=== PATIENT | male | born 1950 | race Caucasian/White ===

== ENCOUNTER 2017-05-29 10:22 | Inpatient (IN) ==
[2017-05-29] MEDS ORDERED: CeFAZolin Syr 2,000MG/20 ML 2,000 MG/20 ML SYRINGE IVPB ONE (10:38)
[2017-05-29] MEDS ORDERED: Albuterol 2.5 MG/3 ML NEBULIZER IH ONE (10:38)
[2017-05-29] MEDS ORDERED: *HR* Propofol 200 MG/20 ML VIAL IVP ONE (10:42)
[2017-05-29] MEDS ORDERED: *HR* Midazolam HCl 2 MG/2 ML VIAL ONE (10:43)
[2017-05-29] MEDS ORDERED: *HR* FentaNYL (PF) 100 MCG/2 ML VIAL ONE (10:43)
[2017-05-29] MEDS ORDERED: Ringers Solution, Lactated 1,000 ML IVC SCH ×2 (10:45→17:52)
[2017-05-29] MEDS ORDERED: Dexamethasone 4 MG/ML VIAL ONE (10:47)
[2017-05-29] MEDS ORDERED: Lidocaine -MPF 2% 2 ML VIAL ONE (10:47)
[2017-05-29] MEDS ORDERED: Ondansetron 4 MG/2 ML VIAL ONE (10:47)
[2017-05-29] MEDS ORDERED: *HR* Rocuronium Bromide 50 MG/5 ML VIAL ONE (10:47)
--- NOTE | 2017-05-29 11:30 | Anesthesia Evaluation PreOp ---
Date of Encounter: 05/29/17 Time of Encounter: 11:28 - Past History Planned Operation: Robotic Assisted Radical Prostatectomy Cardiac History: Denies any Significant Hx (MRI fusion Bx Prostate Cardiac History: HTN, Hyperlipidemia Pulmonary History: Denies Any Significant HX AD OPERATIONS SPECIALIST History: Denies Any Significant HX Other Medical History: Diabetes Type II (prediabetes) Anesthesia History: No Prior Anesthetic Complications, Past Anesthesia (Tonsils) Alcohol Use: none), HTN, Hyperlipidemia Pulmonary History: Denies Any Significant HX, Smoker (pipe) AD OPERATIONS SPECIALIST History: Denies Any Significant HX Other Medical History: Diabetes Type II, Other (prostate CA) Anesthesia History: No Prior Anesthetic Complications, Past Anesthesia (MRI fusion Bx of Prostate, Tonsillectomy) Alcohol Use: none Drug use: none Medications and Allergies Chlorhexidine Rinse 15 ml PO BID 05/29/17 [History] Lisinopril/Hydrochlorothiazide [Zestoretic 20-12.5 mg Tablet] 1 tab PO DAILY 09/13 [History] Simvastatin [Zocor] 20 mg PO HS 05/29/17 [History] 3 Allergy/AdvReac Type Severity Reaction Status Date / Time No Known Allergies Allergy Verified 05/29/17 10:52 - Meds/Allergy Pre-op Review Medications Reviewed: Yes Allergies Reviewed: Yes Beta Blockers on Current Med List: No Anesthesia Results - Labs Laboratory Tests 05/20/17 05/20/17 10:25 10:25 WBC 5.4 Hgb 14.7 Hct 44.2 Plt Count 197 Sodium 138 Potassium 4.2 Chloride 108 Carbon Dioxide 23 BUN 17 Creatinine 0.89 - Imaging EKG: image reviewed (SINUS RHYTHM MODERATE INTRAVENTRICULAR CONDUCTION DELAY) Anesthesia Exam O2 Sat Height 1.8 m Height 1.8 m Weight 91.626 kg Weight 91.626 kg O2 Sat by Pulse Oximetry 93 Vital Signs Temp Pulse Resp BP Pulse Ox 98.2 F 83 16 155/96 93 05/29/17 10:47 05/29/17 10:47 05/29/17 10:47 05/29/17 10:47 05/29/17 10:47 Height: 5'11'' Weight: 202# NPO (# of Hours): > 8 hrs Pain Scale: 0 Pain Scale Used: Numeric (1 - 10) - HEENT Pupil (Motor): Pupils equal, EOMI Mallampati: II Teeth: Normal Oral Opening: Greater than 3 - AD OPERATIONS SPECIALIST LOC: Oriented AD OPERATIONS SPECIALIST Motor: Normal RUE, Normal LUE, Normal RLE, Normal LLE, Normal Face AD OPERATIONS SPECIALIST Sensory: Normal: RUE, LUE, RLE, LLE, Face - Cardiac Rhythm: Regular Murmur: None JVD: No Carotid Bruit: No - Pulmonary Breath Sounds: bilateral Clear Respiratory Effort: Symmetrical Anesthesia Assess/Plan ASA Score: 2 Modified Arthur Scale for Level of Consciousness: Cooperative, oriented, and tranquil Anesthetic Plan: General Autologous Blood: Yes Monitoring Plan: Standard Monitors Recovery Plan: PACU
--- NOTE | 2017-05-29 11:36 | History & Physical Report ---
Date of Encounter: 05/29/17 Time of Encounter: 11:35 24 Hour HP Update - Instructions Instructions: If the History and Physical is less than 30 days old and was completed prior to A.M. admission and or procedure and has NOT been updated on calendar day of procedure please complete this update prior to performing procedure. - Update Patient reports changes in Medical Condition: No Changes in examination, assessment, or condition: No Changes in Medication: No Preop tests/diagnostics Reviewed: Yes Surgery Remains Indicated: Yes Consent for Planned Operative Procedure(s) Verified: Yes - Pre-Operative Checklist Preoperative Checklist Indicated: Yes Prophylactic Antibiotic Ordered: Yes Home Medications Include Beta Mehdi: No Is VTE Prophylaxis Indicated?: Yes
[2017-05-29] MEDS ORDERED: *HR* HYDROmorphone 2 MG/ML SYRINGE ONE (13:35)
[2017-05-29] MEDS ORDERED: *HR* Labetalol 20 MG/4 ML SYRINGE IVP PRN (13:53)
[2017-05-29] MEDS ORDERED: *HR* Promethazine 25 MG/ML VIAL IVP PRN (13:53)
[2017-05-29] MEDS ORDERED: Ondansetron 4 MG/2 ML VIAL IVP ONE (13:53)
[2017-05-29] MEDS ORDERED: *HR* HYDROmorphone (PF) 1 MG/ML SYRINGE IVP PRN (13:53)
[2017-05-29] MEDS ORDERED: *HR* Magnesium Sulfate 1 GM/2 ML VIAL ONE (14:02)
[2017-05-29] MEDS ORDERED: Acetaminophen IV 1,000 MG/100 ML INFUS..BTL ONE (14:30)
[2017-05-29] MEDS ORDERED: Ketorolac 30 MG/ML VIAL ONE (14:34)
--- NOTE | 2017-05-29 16:56 | Operative Note ---
Date of procedure: 05/29/17 Pre-op diagnosis: Prostate cancer Post-op diagnosis: same Procedure: Robotic-assisted radical prostatectomy Implants: 19 Cymro Kurt drain. 20 Cymro Bee catheter. Complications: None. Anesthesia: AKSHAT Surgeon: Javon Olivera Transportation Specialist: Jesus Valero Estimated blood loss (cc): 300 Specimen: Prostate Condition: stable Disposition: PACU Procedure in Detail: INDICATIONS FOR PROCEDURE: Mr. Calderon is a 66 year-old male with history of elevated PSA. He was found on prostate needle biopsy to have Ailyn 3+3 prostate cancer along the left side. He is now presenting for robotic assisted prostatectomy. He was informed of the risks of the procedure including but not limited to bleeding, infection, injury to other structures, need for further procedures, lymphocele, urinary incontinence, urine leak, erectile dysfunction, bladder neck contracture, rectal injury, and the risk of anesthesia. He is willing to proceed. PROCEDURE: After informed consent was obtained, the patient was taken to the operating room, placed supine on the table. He was given IV antibiotics for antibiotic coverage. He had RYAN's and SCD's placed on the lower extremities for DVT prophylaxis. Induction of general anesthesia was performed. The arms were tucked and he was placed in lithotomy position. He was secured to the OR table with padding. An 16 Cymro Bee catheter was placed. A 10mm incision was made just infraumbilically. The Veress needle was introduced. The water drop test passed. Pneumoperitoneum was initiated with low pressures initially. The abomen was insufflated. I then placed a 12mm camera port through this incision using the visual obturator and the 8 mm robotic camera.. Once the trocar was in place, the camera for the robot was placed in the field and remaining trocars were placed. Robotic ports were placed x 2 on the right side. We placed another robotic port to the left of the umbilicus. We also placed a 12mm port in the left lower quadrant. Once all trocars were in place, the robot was docked to the patient and the monopolar scissors were placed on the right robotic arm. The bipolar [place] was in the left robotic arm and the Prograsp in the 4th arm. The left colon was adhered to the pelvic sidewall and the adhesions were dissected down sharply. This provided some mobility and allowed us to mobilize the bowel out of the pelvis. The medial umbilical ligaments were cauterized and the bladder was taken down off the anterior abdominal wall using electrocautery. The bladder was then grasped with a 4th arm and retracted cephalad. We then swept the periprostatic fat off the prostate as well as the pelvic sidewall. We then incised the endopelvic fascia on both sides and carried the incision up to the prostatic apex, sweeping the levator fibers off of the prostate. The puboprostatic ligaments were carefully incised. We then turned our attention to the bladder neck which was incised with the monopolar cautery until the catheter was visualized at the bladder neck. The balloon of the catheter was deflated. It was brought out of the bladder and retracted anteriorly using the fourth arm. He had some lateral lobe hyperplasia. These were brought with the prostate. The plane between the prostate and the posterior bladder neck was developed. The posterior bladder neck was then opened using the cautery until the space between the prostate and the bladder neck was visualized. The posterior aspect of the prostate was dissected down carefully using electrocautery. The vas deferens and seminal vesicals were encountered. The vas deferens were cauterize and divided. We pulled the seminal vesicles up into the field to help retract the prostate in cephalad direction. Denonvillier's fascia was dissected off the prostate posteriorly. We then began releasing the lateral prostatic fascia, first on the left side. The neurovascular bundles was dissected off with minimal use of cautery to do a good nerve sparing approach. After the left neurovascular bundle was released, I carefully divided the pedicles using multiple Hem-o-nik clips to clip the larger prostatic pedicle. An identical procedure was performed on the rightt side to release the neurovascular bundles. Once both neurovascular bundles were released, the posterior attachments were released sharply between the prostate and the rectum. We then used the 4th arm to place the prostate on stretch in cephalad direction. We then transected the dorsal venous complex. There is a fair amount of hemorrhage at this point. The dorsal venous complex was rather broad. It was then oversewed with 0 Vicryl suture in [id number] fashions. Hemostasis was then achieved. Then with cold scissors I cut across the urethra until the catheter was visualized. The catheter was removed and the posterior urethra was transected. The prostate was then placed in an Endo Catch bag. The pedicles were identified and cautery was utilized to minimize any bleeding to control it. The urethral vesicle anastomosis was then performed with a 3-0 V-Nik suture in running fashion starting at 6 o'clock position. With two sutures tied together we then ran the right side up about [facility]. The left side was then run around until the bladder was reanastamosed to the urethra. The final 20 Cymro catheter was placed into the bladder and balloon filled with 15 mL of sterile water. The bladder was irrigated. No leak was identified. A 19 Cymro Kurt drain was placed through the trocar down into the pelvis. The trocar was removed and drain sewn in place with a suture. The robot was then undocked from the patient. I was able to place my finger from the camera wound across the abdomen to grasp the Endocatch bag and bring the suture to the umbilical wound. After extending the incision slightly with the electrocautery the EndoCatch bag was then removed from the camera port. The abdominal fascia was then closed in running fashion with 0 Vicryl suture. All incisions were instilled with 0.25 % Marcaine. The remaining trocars were removed under direct vision and all incisions were then closed with 4-0 Monocryl in subcuticular fashion. The patient was then awakened from general anesthesia and brought to the recovery room in good condition. All sponge, needle, and instrument counts were correct.
--- NOTE | 2017-05-29 17:49 | Anesthesia Evaluation Post Op ---
Date of Encounter: 05/29/17 Time of Encounter: 17:49 - Vital Signs Vital Signs: Selected Entries 05/29/17 17:40 Temperature 99.5 F Pulse Rate 89 Respiratory Rate 16 Blood Pressure 157/91 O2 Sat by Pulse Oximetry 100 Oxygen Flow Rate (LPM) 2 - Lungs Lungs: Clear Ascult./Percussion - Airway Airway: Non-obstructed - Cardiovascular Regular Rate - Mental Status Mental Status: Alert & Oriented, Answers Appropriately - Pain Pain Scale: 0 Pain Scale used: Numeric (1 - 10) - Nausea Vomiting Nausea Vomiting: Not Present - Hydration Hydration: Ice chips, Bee catheter - Discharge PostOp Status: Transfer Patient to floor
[2017-05-29] MEDS ORDERED: Naloxone 0.4 MG/ML INJ IVP PRN (17:52)
[2017-05-29] MEDS ORDERED: Acetaminophen 325 MG TABLET PO PRN (17:52)
[2017-05-29] MEDS ORDERED: Ondansetron 4 MG/2 ML VIAL IVP PRN (17:52)
[2017-05-29] MEDS: *HR* Heparin 5,000 UNIT/ML VIAL SQ SCH (18:34)
[2017-05-29] MEDS: 0.9 % Sodium Chloride 1,000 ML IVC SCH (18:34)
[2017-05-30] MEDS: *HR* HYDROmorphone (PF) 1 MG/ML SYRINGE IVP PRN ×2 (03:10→08:19)
[2017-05-30] MEDS: 0.9 % Sodium Chloride 1,000 ML IVC SCH (03:17)
[2017-05-30 05:19] LABS: Hematocrit 37.5 % (37.5-50.1); Hemoglobin 12.6 g/dL (12.9-16.9); Mean Corpuscular HGB Conc 33.6 g/dL (31.6-35.5); Mean Corpuscular Hemoglobin 29.9 pg (28.0-33.3); Mean Corpuscular Volume 88.9 fL (83.0-100.0); Platelet Count 280 K/mcL (140-400); Red Blood Count 4.22 M/mcL (4.19-5.50); Red Cell Distribution Width 13.7 % (11.5-14.5)
[2017-05-30 05:33] LABS: BUN/Creatinine Ratio 14 (6-26); Blood Urea Nitrogen 12 mg/dL (8-26); Calcium 8.3 mg/dL (8.6-10.8); Carbon Dioxide 25 mEq/L (19-29); Chloride 105 mEq/L (98-109); Glucose 123 mg/dL (70-99); Osmolality,Calculated 285 (280-300); Potassium 3.8 mEq/L (3.5-4.5); Sodium 137 mEq/L (136-145); eGFR For African Americans > 60 (> 60); eGFR For Non-African Americans > 60 (> 60)
[2017-05-30] MEDS: *HR* Heparin 5,000 UNIT/ML VIAL SQ SCH ×2 (05:33→18:36)
--- NOTE | 2017-05-30 07:38 | Urology Progress Note ---
Date of Encounter: 05/30/17 Time of Encounter: 07:36 - Assessment and Plan (1) Prostate cancer Current Visit: Yes Status: Acute Assessment and plan: Postop day 1 status post robotic-assisted radical prostatectomy. 1. Increase diet to clear liquids today. 2. Will consult PT for ambulation. 3. Continue ANGELICA for now. 4. Continue Bee catheter. 5. Consider possible discharge home later today if tolerating a general diet. Progress Note Narrative: Postoperative day #1 status post robotic-assisted radical prostatectomy. He is doing well. His pain is adequately controlled. He mentioned some mild headache. He is breathing well. He denies chest pain or shortness of breath. He denies any nausea. Objective Initial Vital Signs Temp Pulse Resp BP Pulse Ox 98.2 F 83 16 155/96 93 05/29/17 10:47 05/29/17 10:47 05/29/17 10:47 05/29/17 10:47 05/29/17 10:47 - General physical appearance Present: well developed, well nourished, no distress - Respiratory Present: normal respiratory effort - Abdomen Present: soft (Appropriately tender. Incisions are clean dry and intact. ANGELICA drain is serosanguineous.) - Genitourinary Present: normal penis with no external lesions Urine Appearance: Present: Clear - Labs 05/30/17 05:02 05/30/17 05:02 Diabetes panel 05/30/17 Range/Units 05:02 Sodium 137 (136-145) mEq/L Potassium 3.8 (3.5-4.5) mEq/L Chloride 105 (98-109) mEq/L Carbon Dioxide 25 (19-29) mEq/L BUN 12 (8-26) mg/dL Creatinine 0.84 (0.72-1.25) mg/dL Glucose 123 H (70-99) mg/dL Calcium 8.3 L (8.6-10.8) mg/dL Calcium panel 05/30/17 Range/Units 05:02 Calcium 8.3 L (8.6-10.8) mg/dL Pituitary panel 05/30/17 Range/Units 05:02 Sodium 137 (136-145) mEq/L Potassium 3.8 (3.5-4.5) mEq/L Chloride 105 (98-109) mEq/L Carbon Dioxide 25 (19-29) mEq/L BUN 12 (8-26) mg/dL Creatinine 0.84 (0.72-1.25) mg/dL Glucose 123 H (70-99) mg/dL Calcium 8.3 L (8.6-10.8) mg/dL Adrenal panel 05/30/17 Range/Units 05:02 Sodium 137 (136-145) mEq/L Potassium 3.8 (3.5-4.5) mEq/L Chloride 105 (98-109) mEq/L Carbon Dioxide 25 (19-29) mEq/L BUN 12 (8-26) mg/dL Creatinine 0.84 (0.72-1.25) mg/dL Glucose 123 H (70-99) mg/dL Calcium 8.3 L (8.6-10.8) mg/dL - VTE Documentation of Mechanical Device: Intermittent pneumatic compression device Consult Discharge Plan - Plan Referrals: Francois Wisdom MD [Primary Care Provider] - Javon Olivera MD [Partnered Physician] -
[2017-05-30] MEDS ORDERED: D5% in 0.45% NACL w KCl 20 MEQ/1,000 ML MLS IVC SCH (07:45)
[2017-05-30] MEDS ORDERED: Lisinopril-HCTZ 20-12.5mg TABLET PO SCH (09:00)
[2017-05-30] MEDS: *HR* OxyCODONE Immed Rel 5 MG TABLET PO PRN ×2 (11:40→18:32)
[2017-05-30 15:27] VITALS: BP 147/88
--- NOTE | 2017-05-30 17:14 | Discharge Summary ---
Date of Encounter: 05/30/17 Time of Encounter: 17:12 - Discharge Diagnosis (1) Prostate cancer Priority: Primary Status: Acute - Discharge Medications Prescriptions: Docusate [Colace] 100 mg PO BID #60 capsule Oxycodone HCl/Acetaminophen [Percocet 5-325 mg Tablet] 1 each PO Q6H PRN #25 tablet PRN Reason: Pain Home Medications: Chlorhexidine Rinse 15 ml PO BID 05/29/17 [History] Lisinopril/Hydrochlorothiazide [Zestoretic 20-12.5 mg Tablet] 1 tab PO DAILY 09/13 [History] Simvastatin [Zocor] 20 mg PO HS 05/29/17 [History] Docusate [Colace] 100 mg PO BID #60 capsule 05/30/17 [Rx] Oxycodone HCl/Acetaminophen [Percocet 5-325 mg Tablet] 1 each PO Q6H PRN #25 tablet 05/30/17 [Rx] Allergies/Adverse Reactions: 3 Allergy/AdvReac Type Severity Reaction Status Date / Time No Known Allergies Allergy Verified 05/29/17 10:52 Labs on day of discharge: Labs from last 24 hours 05/30/17 05/30/17 05/30/17 16:31 11:01 07:58 WBC RBC Hgb Hct MCV MCH MCHC RDW Plt Count MPV Sodium Potassium Chloride Carbon Dioxide BUN Creatinine Est GFR ( Amer) Est GFR (Non-Af Amer) BUN/Creatinine Ratio Glucose POC Glucose 118 H 130 H 98 H Calculated Osmolality Calcium 05/30/17 05/30/17 05/29/17 05:02 05:02 20:35 WBC 10.6 RBC 4.22 Hgb 12.6 L Hct 37.5 MCV 88.9 MCH 29.9 MCHC 33.6 RDW 13.7 Plt Count 280 MPV 9.0 L Sodium 137 Potassium 3.8 Chloride 105 Carbon Dioxide 25 BUN 12 Creatinine 0.84 Est GFR ( Amer) > 60 Est GFR (Non-Af Amer) > 60 BUN/Creatinine Ratio 14 Glucose 123 H POC Glucose 138 H Calculated Osmolality 285 Calcium 8.3 L Date of admission: 05/29/17 17:58 Primary care physician: Francois Wisdom MD Consults: 05/30/17 07:38 Consult to Physical Therapy [CONS] Routine Comment: Evaluate, develop and implement POC Reason for Consult: ambulation. Discharging clinician: Javon Olivera Anticipated date of discharge: 05/30/17 - Patient Status Disposition: Home, Self-Care Condition: Good Functional capacity at discharge: independent ambulation Overall status at discharge: patient is progressing back to baseline - Discharge Instructions Follow Up With: Francois Wisdom MD [Primary Care Provider] - Javon Olivera MD [Partnered Physician] - (06/06/2017 for a voiding triall) Additional Instructions: Please provide catheter care instructions - leg bag, night bag, leg strap and how to change the bags appropriately. 1. No heavy lifting greater than 20 pounds x2 weeks. 2. No tub baths x2 weeks. 3. May shower tomorrow. 4. He should follow up in 1 week for voiding trial. 5. He should return for any fevers, chills, nausea, vomiting, or significant swelling/ecchymosis. - Diet and Activity Activity: increase activity as tolerated Diet: advance to your usual diet - Hospital Course Hospital course: Mr. Calderon is a 66 year old male who has a history of prostate cancer. He underwent a robotic-assisted radical prostatectomy on May 29, 2017. His pain was well-controlled on postoperative day 1. He was able to ambulate. He had good return of bowel function. His diet was advanced to a regular diet which he tolerated. His catheter is draining well. He had minimal drain output. His drain was removed. He was then discharged home. - Time Spent with Patient Total time spent providing and/or coordinating discharge services: Less than 30 minutes Exam Initial Vital Signs Temp Pulse Resp BP Pulse Ox 98.2 F 83 16 155/96 93 05/29/17 10:47 05/29/17 10:47 05/29/17 10:47 05/29/17 10:47 05/29/17 10:47 - General physical appearance Present: well developed, well nourished, no distress - Eyes Present: icteric - ENT Present: normal nares - Neck Present: trachea midline - Respiratory Present: normal respiratory effort - Cardiovascular Cardiovascular exam IM: RRR - Abdomen Abdomen: Present: soft - VTE Documentation of Mechanical Device: Intermittent pneumatic compression device
[2017-05-30] MEDS ORDERED: FLUARIX QUAD 2017-18 36MOS UP/PF 0.5 ML SYRINGE IM ONE (18:20)
== END 2017-05-30 19:50 | disposition home or self-care (01) | DRG 708 ==
LOC: SAMDAY 10:22 → 3ANU 17:58
PROVIDERS: ADMIT Urology; ATTEND Urology

== ENCOUNTER 2017-11-24 07:33 | Inpatient (IN) ==
[2017-11-24] MEDS ORDERED: CeFAZolin Syr 2,000MG/20 ML 2,000 MG/20 ML SYRINGE IVPB ONE (07:57)
[2017-11-24] MEDS ORDERED: Albuterol 2.5 MG/3 ML NEBULIZER IH ONE (07:58)
[2017-11-24] MEDS ORDERED: Ringers Solution, Lactated 1,000 ML IVC SCH (08:00)
[2017-11-24] MEDS ORDERED: Albuterol 2.5 MG/3 ML NEBULIZER ONE (08:01)
[2017-11-24] MEDS ORDERED: Dexamethasone 4 MG/ML VIAL ONE ×2 (08:42→09:46)
[2017-11-24] MEDS ORDERED: diazePAM 5 MG TABLET PO ONE (08:47)
--- NOTE | 2017-11-24 08:51 | Anesthesia Evaluation PreOp ---
Date of Encounter: 11/24/17 Time of Encounter: 08:52 - Past History Planned Operation: L hand assisted lap nephrectomy Cardiac History: HTN, Hyperlipidemia Pulmonary History: Denies Any Significant HX TANNER ROTARY DRUM CONTINUOUS PROCESS History: Other (chronic back pain (possibly from years of hard work; unsure if renal mass is contributing)) Other Medical History: Renal (Left renal cancer), Diabetes Type II (pre- diabetes (diet controlled)), Other (hx prostate cancer s/p radical prostatectomy and radiation) Anesthesia History: No Prior Anesthetic Complications, Past Anesthesia Alcohol Use: occasionally Drug use: unknown Medications and Allergies Lisinopril/Hydrochlorothiazide [Zestoretic 20-12.5 mg Tablet] 1 tab PO BID 05/29 [History] Simvastatin [Zocor] 20 mg PO HS 05/29/17 [History] Docusate [Colace] 100 mg PO BID #60 capsule 05/30/17 [Rx] Aspirin [Lo-Dose Aspirin EC] 81 mg PO DAILY 06/25/17 [History] Cholecalciferol (D-3) [Vitamin D] 2,000 unit PO DAILY 06/25/17 [History] Gluc/Goldy-MSM#1/Vit C/Armen/Bor [Evhkbcg-Tqffi-VHA Complex Cplt] 1 each PO DAILY 06/25/17 [History] Chlorhexidine Rinse 15 ml PO BID 11/24/17 [History] Potassium Chloride [Potassium Chloride] 10 meq PO BID 11/24/17 [History] Sildenafil Citrate [Revatio] 20 mg PO DAILY PRN 11/24/17 [History] amLODIPine [Norvasc] 5 mg PO DAILY 11/24/17 [History] 3 Allergy/AdvReac Type Severity Reaction Status Date / Time No Known Allergies Allergy Verified 11/24/17 08:06 - Meds/Allergy Pre-op Review Medications Reviewed: Yes Allergies Reviewed: Yes Beta Blockers on Current Med List: No Anesthesia Results - Labs Laboratory Tests 11/12/17 11/12/17 13:38 13:38 WBC 8.0 Hgb 14.7 Hct 43.6 Plt Count 295 Potassium 3.3 L Creatinine 0.83 Est GFR ( Amer) > 60 Est GFR (Non-Af Amer) > 60 - Imaging EKG: report reviewed, image reviewed (SR; mod IVCD) Anesthesia Exam Last Vital Signs Temp 97.9 F 11/24/17 07:52 Pulse 70 11/24/17 07:52 Resp 18 11/24/17 07:52 BP 129/89 11/24/17 07:52 Pulse Ox 96 11/24/17 07:52 Weight: 91 kg NPO (# of Hours): > 8 hrs - HEENT Pupil (Motor): Pupils equal, EOMI Mallampati: III Teeth: Poor dentition Oral Opening: Greater than 3 - TANNER ROTARY DRUM CONTINUOUS PROCESS LOC: Oriented - Cardiac Rhythm: Regular Murmur: None - Pulmonary Breath Sounds: bilateral Clear Respiratory Effort: Symmetrical Anesthesia Assess/Plan ASA Score: 3 Modified Jerzy Scale for Level of Consciousness: Cooperative, oriented, and tranquil Anesthetic Plan: General Monitoring Plan: Standard Monitors, A-Line Recovery Plan: PACU
--- NOTE | 2017-11-24 09:13 | History & Physical Report ---
Date of Encounter: 11/24/17 Time of Encounter: 09:13 24 Hour HP Update - Instructions Instructions: If the History and Physical is less than 30 days old and was completed prior to A.M. admission and or procedure and has NOT been updated on calendar day of procedure please complete this update prior to performing procedure. - Update Patient reports changes in Medical Condition: No Changes in examination, assessment, or condition: No Changes in Medication: No Preop tests/diagnostics Reviewed: Yes Surgery Remains Indicated: Yes Consent for Planned Operative Procedure(s) Verified: Yes - Pre-Operative Checklist Preoperative Checklist Indicated: Yes Prophylactic Antibiotic Ordered: Yes Home Medications Include Beta Mehdi: No Is VTE Prophylaxis Indicated?: Yes
[2017-11-24] MEDS ORDERED: *HR* Midazolam HCl 2 MG/2 ML VIAL ONE (09:44)
[2017-11-24] MEDS ORDERED: *HR* FentaNYL (PF) 100 MCG/2 ML VIAL ONE (09:44)
[2017-11-24] MEDS ORDERED: Lidocaine -MPF 2% 2 ML VIAL ONE ×2 (09:46→10:30)
[2017-11-24] MEDS ORDERED: Ondansetron 4 MG/2 ML VIAL ONE (09:46)
[2017-11-24] MEDS ORDERED: *HR* Succinylcholine 200 MG/10 ML VIAL IVP ONE (09:50)
[2017-11-24] MEDS ORDERED: *HR* Propofol 200 MG/20 ML VIAL IVP ONE (09:50)
[2017-11-24] MEDS ORDERED: *HR* Rocuronium Bromide 50 MG/5 ML VIAL ONE ×2 (09:51→13:55)
[2017-11-24] MEDS ORDERED: Lidocaine -MPF 4% 5 ML AMPUL ONE (09:54)
[2017-11-24] MEDS ORDERED: Heparin 1,000 UNITS/500 mL 500 ML ONE (10:10)
[2017-11-24] MEDS ORDERED: *HR* PHENYLEPHRINE 1,000 MCG/10 ML SYRINGE IVP ONE (10:57)
[2017-11-24] MEDS ORDERED: Acetaminophen IV 1,000 MG/100 ML INFUS..BTL ONE (12:20)
[2017-11-24] MEDS ORDERED: Ondansetron 4 MG/2 ML VIAL IVP ONE (12:33)
[2017-11-24] MEDS ORDERED: *HR* Promethazine 25 MG/ML VIAL IVP PRN (12:33)
[2017-11-24] MEDS ORDERED: *HR* Labetalol 100 MG/20 ML MDV IVP PRN (12:33)
[2017-11-24] MEDS ORDERED: Dexamethasone 4 MG/ML VIAL IVP ONE (12:33)
[2017-11-24] MEDS ORDERED: Albumin Human 5% 25.0 GM/500 ML VIAL ONE (14:09)
[2017-11-24] MEDS ORDERED: *HR* Morphine 10 MG/ML VIAL ONE (14:22)
[2017-11-24] MEDS ORDERED: Neostigmine Methylsulfate 3 MG/3 ML SYRINGE ONE (14:22)
--- NOTE | 2017-11-24 15:02 | Operative Note ---
Date of procedure: 11/24/17 Pre-op diagnosis: Left renal mass Post-op diagnosis: same Procedure: Left hand-assisted laparoscopic nephrectomy Implants: 16-Chadian Bee catheter Complications: None Anesthesia: GETA Surgeon: Javon Olivera Was there an teacher assistant present: No Estimated blood loss (cc): 300 Specimen: left kidney Condition: stable Disposition: PACU Procedure in Detail: Indications: Mr. Calderon is a 67-year-old gentleman has a history of prostate cancer and a left renal mass. He previously underwent a robotic-assisted radical prostatectomy. In regards to the left renal mass it is located in the upper pole. Given its size and location he elected to undergo a hand-assisted laparoscopic left nephrectomy. He was informed of the risks of the surgery which include but are not limited to bleeding, infection, injury to structures, need for further procedures, recurrence, DVT, PE, ileus, bowel injury, splenic injury, and the risk of anesthesia. He is willing to proceed. Procedure: After informed consent was obtained the patient was brought back to the operating room and placed in the supine position. A timeout was performed. Gen. anesthesia was administered and an endotracheal tube was placed. A Bee catheter was placed, and clear urine returned. He was then placed in the flank position with the left side up. He was well secured to the operating room table. All pressure points were well-padded. A 7 cm supraumbilical incision was then made. The subcutaneous tissue was then dissected down using cautery. The anterior fascia was scored with the cautery. Using a forceps the fascia was then opened. The peritoneum was then identified below. This was grasped with forceps and opened sharply with Metzenbaum scissors. Entry into the peritoneum was safe. The peritoneum was fully opened the length of the incision. I then lysed some adhesions near the umbilicus and freed the bowel from the abdominal wall. The hand port was then placed. Insufflation was achieved. A separate 1 cm incision was then made lateral to the hand port. Another 1 cm incision was made superior to the hand port. 12 mm trochars were then placed. These were placed under direct visual guidance. The white line of Toldt was then taken down using the Harmonic. The bowel was reflected off the spleen. The Gerota's fascia was identified and the bowel was further dissected medially. Dissection proceeded medial to the kidney and the ureter was identified. This was retracted anteriorly. The gonadal vein was identified and retracted inferiorly. Dissection proceeded up to the level of the renal vein. The renal vein was dissected out. Dissection then proceeded further superiorly. A window behind the vein was created. There was a secondary renal vein and artery to the lower pole. This was dissected out and stapled across. I then identified the renal artery which is located so superior to the renal vein. During this dissection a small laceration was created in the renal vein. A window between the artery and the vein was created. The artery was stapled off. I then introduced a staple and stapled across the renal vein more medial than the laceration. Hemostasis was good. Attention was then turned back to the inferior aspect of the kidney. The ureter was divided with the Harmonic scalpel. The tail of the Gerota's fat was dissected and I proceeded to free the kidney laterally. The final section of the dissection occurred superiorly. The kidney was retracted medially and I was able to free those adhesions near the spleen. The mass was large and located in the upper pole. This led to some difficulty getting the upper pole attachments freed up with the Harmonic scalpel. Eventually was able to. As I proceeded along the superior aspect of the kidney and dissected medially I did come across the adrenal gland. This was then freed from the kidney. I left the adrenal gland in place. The kidney was then completely freed. The kidney was then placed in a 15 mm Endo Catch bag. The kidney was removed through the GelPort incision. I then surveyed the nephrectomy bed. There was some bleeding from the adrenal gland. The adrenal and had split along the vein to the adrenal. I introduced the 5 mm clip marketing automation analyst and clipped across the adrenal vein. This controlled the bleeding. FloSeal was applied to the adrenal gland that was remaining and hemostasis seemed adequate. Using the Endo Close the 2 port sites were closed using 0 Vicryl suture. The hand port was then closed. I ran the peritoneum closed using an 0 Vicryl suture. The fascia was closed in an interrupted fashion using 0 Vicryl suture. The wounds were irrigated. Local anesthetic was infiltrated in the wounds. The skin was all closed in a subarticular fashion using a 4-0 Monocryl. Dermabond was applied to the wounds. The patient was then awakened from general anesthesia and brought to the recovery room in good condition. All sponge, needle, and his counts were correct.
[2017-11-24] MEDS: *HR* HYDROmorphone (PF) 1 MG/ML SYRINGE IVP PRN ×4 (15:16→15:36)
[2017-11-24] MEDS ORDERED: *HR* FentaNYL (PF) 100 MCG/2 ML VIAL IVP PRN (15:43)
[2017-11-24] MEDS ORDERED: *HR* HYDROmorphone (PF) 1 MG/ML SYRINGE IVP PRN (15:44)
--- NOTE | 2017-11-24 16:22 | Anesthesia Evaluation Post Op ---
Date of Encounter: 11/24/17 Time of Encounter: 16:22 - Vital Signs Vital Signs: Vital Signs/O2 Sat, Most Current Temp Pulse Resp BP Pulse Ox 98.0 F 84 16 139/89 94 11/24/17 15:59 11/24/17 16:19 11/24/17 16:19 11/24/17 16:19 11/24/17 16:19 - Lungs Lungs: Clear Ascult./Percussion - Airway Airway: Non-obstructed - Cardiovascular Regular Rate - Mental Status Mental Status: Alert & Oriented, Answers Appropriately - Pain Pain Scale: 5 Pain Scale used: Numeric (1 - 10) - Nausea Vomiting Nausea Vomiting: Not Present - Hydration Hydration: Ice chips, Bee catheter - Discharge PostOp Status: Transfer Patient to floor
[2017-11-24] MEDS ORDERED: Acetaminophen 325 MG TABLET PO PRN (17:29)
[2017-11-24] MEDS ORDERED: Naloxone 0.4 MG/ML INJ IVP PRN (17:29)
[2017-11-24] MEDS ORDERED: CeFAZolin Pre 2,000 MG/100 ML 2,000 MG/100 ML BAG IVPB SCH (18:00)
[2017-11-24] MEDS: OXYCODONE Oral CONC 10 MG/0.5 ML ORAL.SYG SL PRN ×2 (18:14→22:59)
[2017-11-24] MEDS: CeFAZolin Pre 2,000 MG/100 ML 2,000 MG/100 ML BAG IVPB SCH (18:15)
[2017-11-24] MEDS: 0.9 % Sodium Chloride 1,000 ML IVC SCH (18:15)
[2017-11-24] MEDS: *HR* OxyCODONE Immed Rel 5 MG TABLET PO PRN (21:07)
[2017-11-25] MEDS: *HR* OxyCODONE Immed Rel 5 MG TABLET PO PRN ×4 (01:28→23:38)
[2017-11-25] MEDS: CeFAZolin Pre 2,000 MG/100 ML 2,000 MG/100 ML BAG IVPB SCH ×3 (01:29→17:49)
[2017-11-25] MEDS: Ondansetron 4 MG/2 ML VIAL IVP PRN ×2 (03:06→20:42)
[2017-11-25] MEDS: OXYCODONE Oral CONC 10 MG/0.5 ML ORAL.SYG SL PRN ×2 (03:14→08:46)
[2017-11-25] MEDS ORDERED: Nitroglycerin 0.4 MG TAB.SUBL SL PRN (03:33)
[2017-11-25] MEDS: 0.9 % Sodium Chloride 1,000 ML IVC SCH ×3 (04:04→15:54)
--- NOTE | 2017-11-25 04:05 | Event Note ---
Date of Encounter: 11/25/17 Time of Encounter: 03:30 Called by RN state pt c/o chest tightness. Evaluated pt at bedside, actually he state tightness/discomfort on [facility] abd, which is the place he had surgery. Did an EKG shows no significant ST-T change and no significant changes comparing previous EKG. No further test needed at this point.
[2017-11-25 05:19] LABS: Basophils % 0.2 %; Hematocrit 37.9 % (37.5-50.1); Hemoglobin 12.6 g/dL (12.9-16.9); Immature Granulocytes % 0.4 % (0-4); Lymphocytes # 1.1 K/mcL (0.6-4.6); Lymphocytes % 10.5 %; Mean Corpuscular HGB Conc 33.2 g/dL (31.6-35.5); Mean Corpuscular Hemoglobin 29.5 pg (28.0-33.3); Mean Corpuscular Volume 88.8 fL (83.0-100.0); Mean Platelet Volume 9.2 fL (9.4-12.4); Monocytes # 0.7 K/mcL (0.0-1.3); Monocytes % 6.5 %; Neutrophils # 8.7 K/mcL (1.6-8.9); Platelet Count 259 K/mcL (140-400); Red Blood Count 4.27 M/mcL (4.19-5.50); Red Cell Distribution Width 13.4 % (11.5-14.5); Segmented Neutrophils % 82.4 %
[2017-11-25 05:41] LABS: BUN/Creatinine Ratio 13 (6-26); Blood Urea Nitrogen 17 mg/dL (8-23); Calcium 8.4 mg/dL (8.6-10.3); Carbon Dioxide 28 mEq/L (23-29); Chloride 103 mEq/L (98-107); Glucose 124 mg/dL (70-105); Osmolality,Calculated 287 (280-300); Potassium 3.9 mEq/L (3.5-5.1); Sodium 137 mEq/L (136-145); eGFR For African Americans > 60 (> 60); eGFR For Non-African Americans 53 (> 60)
--- NOTE | 2017-11-25 07:27 | Urology Progress Note ---
Date of Encounter: 11/25/17 Time of Encounter: 07:23 - Assessment and Plan (1) Renal mass Current Visit: Yes Status: Acute Assessment and plan: Postoperative #1 status post left hand-assisted lap Nephrectomy. 1. Ambulate 3 times per day. 2. Discontinue Bee catheter. 3. Labs are okay today. 4. Appreciate IM assessment. 5. Continue in patient stay. 6. Prophylaxis: SCDs, subcutaneous heparin, omeprazole. 7. Continue clear liquid diet. Progress Note Narrative: Postop day #1 status post left hand-assisted laparoscopic nephrectomy. He has some chest tightness. He was seen by internal medicine last night. An EKG was normal. Labs today looked okay. He is still having some abdominal pain. He denies any shortness of breath. Pain is adequately controlled. Objective Initial Vital Signs Temp Pulse Resp BP Pulse Ox 97.9 F 70 18 129/89 96 11/24/17 07:52 11/24/17 07:52 11/24/17 07:52 11/24/17 07:52 11/24/17 07:52 - General physical appearance Present: well developed, well nourished, no distress - Respiratory Present: normal respiratory effort - Abdomen Present: soft (incisions are clean,dry, intact. No erythema) - Genitourinary Present: normal penis with no external lesions Urine Appearance: Present: Clear (Bee in place.) - Labs 11/25/17 04:48 11/25/17 04:48 Diabetes panel 11/25/17 Range/Units 04:48 Sodium 137 (136-145) mEq/L Potassium 3.9 (3.5-5.1) mEq/L Chloride 103 (98-107) mEq/L Carbon Dioxide 28 (23-29) mEq/L BUN 17 (8-23) mg/dL Creatinine 1.35 H (0.70-1.30) mg/dL Glucose 124 H (70-105) mg/dL Calcium 8.4 L (8.6-10.3) mg/dL Calcium panel 11/25/17 Range/Units 04:48 Calcium 8.4 L (8.6-10.3) mg/dL Pituitary panel 11/25/17 Range/Units 04:48 Sodium 137 (136-145) mEq/L Potassium 3.9 (3.5-5.1) mEq/L Chloride 103 (98-107) mEq/L Carbon Dioxide 28 (23-29) mEq/L BUN 17 (8-23) mg/dL Creatinine 1.35 H (0.70-1.30) mg/dL Glucose 124 H (70-105) mg/dL Calcium 8.4 L (8.6-10.3) mg/dL Adrenal panel 11/25/17 Range/Units 04:48 Sodium 137 (136-145) mEq/L Potassium 3.9 (3.5-5.1) mEq/L Chloride 103 (98-107) mEq/L Carbon Dioxide 28 (23-29) mEq/L BUN 17 (8-23) mg/dL Creatinine 1.35 H (0.70-1.30) mg/dL Glucose 124 H (70-105) mg/dL Calcium 8.4 L (8.6-10.3) mg/dL - VTE Documentation of Mechanical Device: Intermittent pneumatic compression device Consult Discharge Plan - Plan Referrals: Javon Olivera MD [Partnered Physician] -
[2017-11-25] MEDS: amLODIPine 5 MG TABLET PO SCH (08:18)
[2017-11-25] MEDS: *HR* Heparin 5,000 UNIT/ML VIAL SQ SCH ×2 (08:19→17:48)
[2017-11-25] MEDS ORDERED: Bisacodyl 10 MG RECTAL SUPPOSITORY RC ONE (15:02)
[2017-11-25] MEDS: Simethicone 80 MG TAB.CHEW PO PRN ×2 (15:18→20:49)
[2017-11-26] MEDS: OXYCODONE Oral CONC 10 MG/0.5 ML ORAL.SYG SL PRN (03:18)
[2017-11-26] MEDS: CeFAZolin Pre 2,000 MG/100 ML 2,000 MG/100 ML BAG IVPB SCH ×3 (03:18→17:15)
[2017-11-26] MEDS: Simethicone 80 MG TAB.CHEW PO PRN ×2 (05:59→18:52)
[2017-11-26] MEDS: *HR* Heparin 5,000 UNIT/ML VIAL SQ SCH ×2 (06:00→17:14)
--- NOTE | 2017-11-26 06:59 | Urology Progress Note ---
Date of Encounter: 11/26/17 Time of Encounter: 06:57 - Assessment and Plan (1) Renal mass Current Visit: Yes Status: Acute Assessment and plan: Postoperative day #2 status post left hand-assisted left nephrectomy. He is doing well. 1. Await return of bowel function. 2. Continue ambulation. 3. Continue subcutaneous heparin, SCDs, and omeprazole. 4. Dulcolax suppository today. 5. We will move diet to clear liquids until he starts passing gas. Progress Note Narrative: Postop day #2 status post left hand-assisted laparoscopic nephrectomy. He is still having some nausea. He had emesis yesterday. He denies passing any gas. Pain is adequately controlled. He is ambulating well. He says he is breathing well and denies any chest pain. Objective Initial Vital Signs Temp Pulse Resp BP Pulse Ox 97.9 F 70 18 129/89 96 11/24/17 07:52 11/24/17 07:52 11/24/17 07:52 11/24/17 07:52 11/24/17 07:52 - General physical appearance Present: well developed, well nourished, no distress - Respiratory Present: normal respiratory effort - Abdomen Present: distended (Mildly distended. Incisions are clean, dry, and intact. ) - Musculoskeletal Present: normal gait - Psychiatric Present: oriented to time - Labs 11/25/17 04:48 11/25/17 04:48 - VTE Documentation of Mechanical Device: Intermittent pneumatic compression device Consult Discharge Plan - Plan Referrals: Javon Olivera MD [Partnered Physician] -
[2017-11-26] MEDS: D5% in 0.45% NACL w KCl 20 MEQ/1,000 ML MLS IVC SCH ×2 (09:14→18:54)
[2017-11-26] MEDS: Bisacodyl 10 MG RECTAL SUPPOSITORY RC SCH (09:14)
[2017-11-26] MEDS: amLODIPine 5 MG TABLET PO SCH (09:14)
--- NOTE | 2017-11-26 12:21 | Electrocardiograph Report ---
[place] [id number] Test Date: 2017-11-25 Pat Name: Santosh Calderon Department: 115 Room: 3A Gender: M Sql Database Developer: : [id number] Requested By: Joselito Quintana Order Number: [id number] Reading MD: Arnav Matamoros Measurements Intervals [place] Rate: 79 P: 134 [place]: 167 QRS: 142 QRSD: 109 T: 169 QT: 375 QTc: 410 Interpretive Statements SINUS RHYTHM ARM LEADS REVERSED RECOMMEND REPEAT ECG Electronically Signed On 11-26-2017 12:20:01 EDT by Arnav Matamoros
[2017-11-26] MEDS: *HR* OxyCODONE Immed Rel 5 MG TABLET PO PRN (12:32)
[2017-11-26] MEDS: 0.9 % Sodium Chloride 1,000 ML IVC SCH (18:51)
[2017-11-27] MEDS: 0.9 % Sodium Chloride 1,000 ML IVC SCH (01:14)
[2017-11-27] MEDS: CeFAZolin Pre 2,000 MG/100 ML 2,000 MG/100 ML BAG IVPB SCH (03:14)
[2017-11-27] MEDS: Simethicone 80 MG TAB.CHEW PO PRN (04:33)
[2017-11-27] MEDS: *HR* OxyCODONE Immed Rel 5 MG TABLET PO PRN (04:36)
[2017-11-27 04:46] LABS: Basophils % 0.4 %; Eosinophils # 0.2 K/mcL (0.0-0.6); Eosinophils % 1.9 %; Hematocrit 35.9 % (37.5-50.1); Hemoglobin 11.9 g/dL (12.9-16.9); Immature Granulocytes % 0.4 % (0-4); Lymphocytes # 1.4 K/mcL (0.6-4.6); Lymphocytes % 17.4 %; Mean Corpuscular HGB Conc 33.1 g/dL (31.6-35.5); Mean Corpuscular Hemoglobin 29.1 pg (28.0-33.3); Mean Corpuscular Volume 87.8 fL (83.0-100.0); Mean Platelet Volume 9.1 fL (9.4-12.4); Monocytes # 0.6 K/mcL (0.0-1.3); Monocytes % 7.2 %; Neutrophils # 5.8 K/mcL (1.6-8.9); Platelet Count 258 K/mcL (140-400); Red Blood Count 4.09 M/mcL (4.19-5.50); Red Cell Distribution Width 13.2 % (11.5-14.5); Segmented Neutrophils % 72.7 %
[2017-11-27 05:11] LABS: BUN/Creatinine Ratio 8 (6-26); Blood Urea Nitrogen 10 mg/dL (8-23); Carbon Dioxide 23 mEq/L (23-29); Chloride 105 mEq/L (98-107); Glucose 127 mg/dL (70-105); Magnesium 2.1 mg/dL (1.6-2.6); Osmolality,Calculated 281 (280-300); Phosphorous 1.5 mg/dL (2.7-4.5); Potassium 3.8 mEq/L (3.5-5.1); Sodium 135 mEq/L (136-145); eGFR For African Americans > 60 (> 60); eGFR For Non-African Americans 58 (> 60)
[2017-11-27] MEDS: *HR* Heparin 5,000 UNIT/ML VIAL SQ SCH (05:52)
[2017-11-27] MEDS: D5% in 0.45% NACL w KCl 20 MEQ/1,000 ML MLS IVC SCH (06:43)
--- NOTE | 2017-11-27 07:18 | Urology Progress Note ---
Date of Encounter: 11/27/17 Time of Encounter: 07:16 - Assessment and Plan (1) Renal mass Current Visit: Yes Status: Acute Assessment and plan: POD #3 s/p left HALN. 1. ADAT. 2. Pathology is pending. 3. Replete phosphorous. 4. Continue ambulation. 5. Will reassess later today for possible d/c home. 6. Continue SCDS, heparin, omeprazole. Progress Note Narrative: POD #3 s/p left hand assisted lap nephrectomy. Doing well. + BM yesterday. Gas is passing better. He is ambulating well. Objective Initial Vital Signs Temp Pulse Resp BP Pulse Ox 97.9 F 70 18 129/89 96 11/24/17 07:52 11/24/17 07:52 11/24/17 07:52 11/24/17 07:52 11/24/17 07:52 - General physical appearance Present: well developed, well nourished, no distress - Respiratory Present: normal respiratory effort - Abdomen Present: soft (incisions are clean,dry, intact. Abdomen is softer.) - Musculoskeletal Present: normal gait - Labs 11/27/17 04:27 11/27/17 04:27 Diabetes panel 11/27/17 Range/Units 04:27 Sodium 135 L (136-145) mEq/L Potassium 3.8 (3.5-5.1) mEq/L Chloride 105 (98-107) mEq/L Carbon Dioxide 23 (23-29) mEq/L BUN 10 (8-23) mg/dL Creatinine 1.25 (0.70-1.30) mg/dL Glucose 127 H (70-105) mg/dL Calcium 9.0 (8.6-10.3) mg/dL Calcium panel 11/27/17 Range/Units 04:27 Calcium 9.0 (8.6-10.3) mg/dL Phosphorus 1.5 L (2.7-4.5) mg/dL Pituitary panel 11/27/17 Range/Units 04:27 Sodium 135 L (136-145) mEq/L Potassium 3.8 (3.5-5.1) mEq/L Chloride 105 (98-107) mEq/L Carbon Dioxide 23 (23-29) mEq/L BUN 10 (8-23) mg/dL Creatinine 1.25 (0.70-1.30) mg/dL Glucose 127 H (70-105) mg/dL Calcium 9.0 (8.6-10.3) mg/dL Adrenal panel 11/27/17 Range/Units 04:27 Sodium 135 L (136-145) mEq/L Potassium 3.8 (3.5-5.1) mEq/L Chloride 105 (98-107) mEq/L Carbon Dioxide 23 (23-29) mEq/L BUN 10 (8-23) mg/dL Creatinine 1.25 (0.70-1.30) mg/dL Glucose 127 H (70-105) mg/dL Calcium 9.0 (8.6-10.3) mg/dL - VTE Documentation of Mechanical Device: Intermittent pneumatic compression device Consult Discharge Plan - Plan Referrals: Javon Olivera MD [Partnered Physician] -
[2017-11-27] MEDS: amLODIPine 5 MG TABLET PO SCH (09:04)
[2017-11-27] MEDS: Bisacodyl 10 MG RECTAL SUPPOSITORY RC SCH (09:04)
[2017-11-27 10:19] VITALS: BP 163/97
--- NOTE | 2017-11-27 11:49 | Discharge Summary ---
Orders not resulted at time of discharge: Pending orders 11/24/17 15:00 Surgical Pathology [PTH] Routine Date of Encounter: 11/27/17 Time of Encounter: 11:47 - Discharge Diagnosis (1) Renal mass Priority: Primary Status: Acute - Hospital Course Hospital course: Mr. Calderon is a 67 year old male who has a history of a left renal mass. He underwent a left hand-assisted laparoscopic nephrectomy on 11/24/2017. He did well after surgery. His diet slowly improved. He had a bowel movement on postoperative day #2. His pain was well controlled. He remained afebrile throughout his postoperative stay. He had no issues with his wounds. On 2017 he was discharged home in good condition. Pathology was still pending at that time. - Time Spent with Patient Total time spent providing and/or coordinating discharge services: Less than 30 minutes Labs on day of discharge: Labs from last 24 hours 11/27/17 11/27/17 04:27 04:27 WBC 7.9 RBC 4.09 L Hgb 11.9 L Hct 35.9 L MCV 87.8 MCH 29.1 MCHC 33.1 RDW 13.2 Plt Count 258 MPV 9.1 L Immature Gran % 0.4 Seg Neutrophils % 72.7 Lymphocytes % 17.4 Monocytes % 7.2 Eosinophils % 1.9 Basophils % 0.4 Neutrophils # 5.8 Lymphocytes # 1.4 Monocytes # 0.6 Eosinophils # 0.2 Basophils # 0.0 Sodium 135 L Potassium 3.8 Chloride 105 Carbon Dioxide 23 BUN 10 Creatinine 1.25 Est GFR ( Amer) > 60 Est GFR (Non-Af Amer) 58 L BUN/Creatinine Ratio 8 Glucose 127 H Calculated Osmolality 281 Calcium 9.0 Phosphorus 1.5 L Magnesium 2.1 - Discharge Medications Prescriptions: OxyCODONE/APAP 5/325 [Percocet 5/325 MG] 1 each PO Q4HR PRN 5 Days #20 tablet PRN Reason: Pain Docusate [Colace] 100 mg PO BID #60 capsule Home Medications: Lisinopril/Hydrochlorothiazide [Zestoretic 20-12.5 mg Tablet] 1 tab PO BID 05/29 [History] Simvastatin [Zocor] 20 mg PO HS 05/29/17 [History] Docusate [Colace] 100 mg PO BID #60 capsule 05/30/17 [Rx] Aspirin [Lo-Dose Aspirin EC] 81 mg PO DAILY 06/25/17 [History] Cholecalciferol (D-3) [Vitamin D] 2,000 unit PO DAILY 06/25/17 [History] Gluc/Goldy-MSM#1/Vit C/Armen/Bor [Tblnyjv-Txrkf-CSE Complex Cplt] 1 each PO DAILY 06/25/17 [History] Chlorhexidine Rinse 15 ml PO BID 11/24/17 [History] Potassium Chloride 10 meq PO BID 11/24/17 [History] Sildenafil Citrate [Revatio] 20 mg PO DAILY PRN 11/24/17 [History] amLODIPine [Norvasc] 5 mg PO DAILY 11/24/17 [History] Docusate [Colace] 100 mg PO BID #60 capsule 11/27/17 [Rx] OxyCODONE/APAP 5/325 [Percocet 5/325 MG] 1 each PO Q4HR PRN 5 Days #20 tablet [Rx] Allergies/Adverse Reactions: 3 Allergy/AdvReac Type Severity Reaction Status Date / Time No Known Allergies Allergy Verified 11/24/17 08:06 Date of admission: 11/24/17 16:58 Primary care physician: Francois Wisdom MD Discharging clinician: Javon Olivera Anticipated date of discharge: 11/27/17 Exam Initial Vital Signs Temp Pulse Resp BP Pulse Ox 97.9 F 70 18 129/89 96 11/24/17 07:52 11/24/17 07:52 11/24/17 07:52 11/24/17 07:52 11/24/17 07:52 - General physical appearance Present: well developed, well nourished, no distress - Eyes Absent: icteric - ENT Present: normal nares - Neck Present: no masses - Respiratory Present: normal respiratory effort - Cardiovascular Cardiovascular exam IM: RRR - Abdomen Abdomen: Present: soft - Integumentary Present: no rash - Neurologic Present: normal coordination - Patient Status Disposition: Home, Self-Care Condition: Good Functional capacity at discharge: independent ambulation Overall status at discharge: patient is progressing back to baseline - Discharge Instructions Follow Up With: Javon Olivera MD [Partnered Physician] - (2 weeks) Additional Instructions: 1. No heavy lifting greater than 20 pounds x4 weeks. 2. No tub baths x2 weeks. 3. May shower tomorrow. 4. He should follow up in 2 weeks for postoperative check. 5. He should return for any fevers, chills, nausea, vomiting, or significant swelling/ecchymosis. - Diet and Activity Activity: increase activity as tolerated Diet: advance to your usual diet - VTE Documentation of Mechanical Device: Intermittent pneumatic compression device
== END 2017-11-27 13:59 | disposition home or self-care (01) | DRG 661 ==
LOC: SAMDAY 07:33 → 3ANU 16:58
PROVIDERS: ADMIT Urology; ATTEND Urology